=== PATIENT | male | born 1930 | race Caucasian/White ===

== ENCOUNTER 2016-08-10 11:17 | Inpatient (IN) | payer MEDICARE, BC, MEDICAID ==
[2016-08-10] VITALS (10 sets, daily range): BP systolic 96–150; BP diastolic 44–65; PULSE 73–89; TEMP 97.6–98.5
[~2016-08-10] VITALS: Ht 172.7 cm; Wt 74.2 kg
[~2016-08-10 11:17] MED LIST: ANTIVERT 12.512.5 MG PO; ASPIR-LOW81 MG PO; ASPIRIN E.C. 8181 MG PO; BYSTOLIC10 MG PO; BYSTOLIC5 MG PO; CALCIUM CARB500 MG PO; CLOPIDOGREL PO; DULCOLAX10 MG RC; FINASTERIDE5 MG PO; FISH OIL1 IU PO; FLOMAX; FLOMAX 0.40.4 MG/CAP PO; GLUCOSAMINE/CHONDROI PO; KLOR-CON 1010 MEQ PO; LASIX 20MG TABL20 MG PO; LISINOPRIL10 MG PO; MILK OF MA400 MG/51 PO; MIRALAX PA17 GM/Dose PO; MYLANTA 150 ML150 M1 PO; PROSCAR PO; PROTONIX 40MG T40 MG PO; TEGRETOL 2200 MG/TAB PO; TRIAMCINOLONE0.11 TP; TYLENOL 325MG325 MG PO; TYLENOL SU650 MG/SUP RC
[2016-08-10] MEDS ORDERED: ZANTAC 150MG T150 MG PO (11:22)
[2016-08-10] MEDS ORDERED: NORVASC 10MG10 MG PO (11:23)
[2016-08-10] MEDS ORDERED: NEXIUM 40MG40 MG PO (11:23)
[2016-08-10] MEDS ORDERED: COLACE 100100 MG/CAP PO (11:24)
[2016-08-10] MEDS ORDERED: SENNA8.6 MG PO (11:25)
[2016-08-10] MEDS ORDERED: CRANBERRY500 M3 PO (11:25)
[2016-08-10] MEDS ORDERED: COUMADIN 5MG5 MG/TAB PO (11:26)
[2016-08-10] MEDS ORDERED: GAVILYTE C WI PO (11:27)
[2016-08-10] MEDS ORDERED: COUMADIN 22.5 MG/TAB PO (11:42)
[2016-08-10] MEDS ORDERED: XALATAN EYE DROPS OU (11:46)
[2016-08-10] MEDS ORDERED: MULTI VITAMINS1 TAB PO (11:58)
[2016-08-10] MEDS ORDERED: CENA K20 MEQ/15 PO (11:59)
[2016-08-10] MEDS ORDERED: GAVISCON 80 MG-1 CT1 PO (12:00)
[2016-08-10] MEDS ORDERED: TYLEINFANT PO (12:02)
[2016-08-10] MEDS ORDERED: BACTROBAN NASA0.9 GM (12:02)
[2016-08-10] MEDS ORDERED: [UNRECOGNIZED DRUG - OTHER] (12:02)
[2016-08-10 13:46] LABS: BASO % 0.1 % (0.0-2.0); GRAN % 82.9 % (42.2-75.2); HEMATOCRIT 39.5 % (42.0-52.0); LYMPH % 11.6 % (20.0-51.0); MEAN CELL VOLUME 94 fl (80.0-100.0); MEAN CORPUSCULAR HEMOGLOBIN 31 pg (27.0-31.0); MEAN CORPUSCULAR HGB CONC 33 g/dl (33.0-37.0); MEAN PLATELET VOLUME 10.9 fl (7.4-10.4); MONO # 0.4 (0.1-0.6); MONO % 5.2 % (1.7-9.3); PLATELET COUNT 222 K/mm3 (130-400); RED BLOOD COUNT 4.19 M/mm3 (4.20-5.60); REDCELL DISTRIBUTION WIDTH-CV 15.1 % (11.5-14.5); WHITE BLOOD COUNT 8.4 K/mm3 (4.8-10.8)
[2016-08-10 13:53] LABS: INR 4.7 (0.8-3.0)
[2016-08-10 13:55] LABS: PROTHROMBIN TIME 55.6 SECONDS (9.7-12.8)
[2016-08-10 13:57] LABS: CALCIUM 9.2 mg/dL (8.4-10.2); CREATININE, serum 0.94 mg/dL (0.66-1.25)
[2016-08-10 14:02] LABS: POTASSIUM 2.7 mmol/L (3.4-5.0)
[2016-08-10 14:15] LABS: MAGNESIUM 2.7 mg/dL (1.6-2.3)
[2016-08-11] VITALS (7 sets, daily range): BP systolic 115–143; BP diastolic 45–68; PULSE 60–76; TEMP 98.2–98.9
[2016-08-11 06:23] LABS: BASO % 0.2 % (0.0-2.0); EOS % 0.2 % (0-4.0); GRAN # 9.2 (1.4-6.5); GRAN % 84.8 % (42.2-75.2); HEMATOCRIT 37.7 % (42.0-52.0); HEMOGLOBIN 12.2 g/dl (13.5-18.0); MEAN CELL VOLUME 95 fl (80.0-100.0); MEAN CORPUSCULAR HEMOGLOBIN 31 pg (27.0-31.0); MEAN CORPUSCULAR HGB CONC 32 g/dl (33.0-37.0); MEAN PLATELET VOLUME 10.5 fl (7.4-10.4); MONO # 0.6 (0.1-0.6); MONO % 5.3 % (1.7-9.3); PLATELET COUNT 204 K/mm3 (130-400); RED BLOOD COUNT 3.95 M/mm3 (4.20-5.60); REDCELL DISTRIBUTION WIDTH-CV 15.1 % (11.5-14.5); WHITE BLOOD COUNT 10.8 K/mm3 (4.8-10.8)
[2016-08-11 06:38] LABS: PROTHROMBIN TIME 11.3 SECONDS (9.7-12.8)
[2016-08-11 06:42] LABS: ALBUMIN 3.6 gm/dL (3.5-5.0); CALCIUM 8.5 mg/dL (8.4-10.2); CREATININE, serum 0.74 mg/dL (0.66-1.25); MAGNESIUM 2.4 mg/dL (1.6-2.3); PHOSPHOROUS 2.3 mg/dL (2.5-4.5); POTASSIUM 3.1 mmol/L (3.4-5.0)
[2016-08-11 07:36] LABS: PH 6 (5-8); SQUAMOUS EPITHELIAL None Seen /hpf; URINE APPEARANCE Cloudy; URINE BACTERIA None Seen /hpf; URINE BILIRUBIN Negative (NEGATIVE); URINE BLOOD Negative (NEGATIVE); URINE COLOR Yellow; URINE GLUCOSE Negative (NEGATIVE); URINE KETONE 2+ (NEGATIVE); URINE UROBILINOGEN Negative (NEGATIVE)
[2016-08-11 07:44] LABS: URINE WBC >50 /hpf
[2016-08-12 02:28] VITALS: BP 122/43; PULSE 65; TEMP 97
[2016-08-12 05:48] VITALS: BP 128/70; PULSE 78; TEMP 98.5
[2016-08-12 10:35] VITALS: BP 132/53; PULSE 70; TEMP 97.6
[2016-08-12 14:10] VITALS: BP 132/54; PULSE 73; TEMP 97.8
[2016-08-12 17:08] VITALS: BP 140/58; PULSE 67; TEMP 97.9
[2016-08-12 21:44] VITALS: BP 137/59; PULSE 64; TEMP 98
[2016-08-13 02:00] VITALS: BP 139/61; PULSE 60; TEMP 98
[2016-08-13 05:23] VITALS: BP 140/59; PULSE 57; TEMP 97.9
[2016-08-13 10:09] VITALS: BP 123/54; PULSE 74; TEMP 97.8
[2016-08-13 14:41] VITALS: BP 112/47; PULSE 66; TEMP 98.3
[2016-08-13 17:54] VITALS: BP 150/64; PULSE 69; TEMP 97.5
[2016-08-13 22:00] VITALS: BP 142/65; PULSE 67; TEMP 98.1
[2016-08-14 02:00] VITALS: BP 142/62; PULSE 60; TEMP 98
[2016-08-14 06:00] VITALS: BP 146/71; PULSE 68; TEMP 98.2
[2016-08-14 08:04] LABS: BASO % 0.5 % (0.0-2.0); EOS # 0.2 (0.0-0.7); EOS % 3.6 % (0-4.0); GRAN # 3.7 (1.4-6.5); GRAN % 60.4 % (42.2-75.2); HEMATOCRIT 38.5 % (42.0-52.0); HEMOGLOBIN 12.7 g/dl (13.5-18.0); LYMPH # 1.6 (1.2-3.4); LYMPH % 26.8 % (20.0-51.0); MEAN CELL VOLUME 94 fl (80.0-100.0); MEAN CORPUSCULAR HEMOGLOBIN 31 pg (27.0-31.0); MEAN CORPUSCULAR HGB CONC 33 g/dl (33.0-37.0); MEAN PLATELET VOLUME 11.1 fl (7.4-10.4); MONO # 0.5 (0.1-0.6); PLATELET COUNT 226 K/mm3 (130-400); REDCELL DISTRIBUTION WIDTH-CV 15.2 % (11.5-14.5); WHITE BLOOD COUNT 6.1 K/mm3 (4.8-10.8)
[2016-08-14] MEDS ORDERED: LOVENOX 3030 MG/0.3 SQ (08:15)
[2016-08-14 08:18] LABS: ADJUSTED CALCIUM 9.1 mg/dL (8.4-10.2); ALBUMIN 3.4 gm/dL (3.5-5.0); BILIRUBIN,TOTAL 0.8 mg/dL (0.0-1.0); CALCIUM 8.6 mg/dL (8.4-10.2); CREATININE, serum 0.66 mg/dL (0.66-1.25); POTASSIUM 3.3 mmol/L (3.4-5.0); TOTAL PROTEIN 6.6 gm/dL (6.4-8.2)
[2016-08-14 09:21] VITALS: BP 113/44; PULSE 73; TEMP 98.3
[2016-08-14] MEDS ORDERED: K-TAB10 PO (09:56)
[2016-08-14 12:28] VITALS: BP 113/44; PULSE 73; TEMP 98.3
== END 2016-08-14 13:45 | DRG 388 ==
LOC: SURG 11:17
PROVIDERS: Family Medicine; Internal Medicine; Surgery
PROC: 0D7N8ZZ Dilation of Sigmoid Colon, Via Natural or Artificial Opening Endoscopic (ICD-10-PCS; principal; 2016-08-10 18:00)
DX: K56.2 Volvulus (principal); J96.21 Acute and chronic respiratory failure with hypoxia; J98.11 Atelectasis; E87.6 Hypokalemia; I10 Essential (primary) hypertension; G14 Postpolio syndrome; Z86.711 Personal history of pulmonary embolism; Z79.01 Long term (current) use of anticoagulants; Z86.73 Personal history of transient ischemic attack (TIA), and cerebral infarction without residual deficits; I87.2 Venous insufficiency (chronic) (peripheral)
CPT/HCPCS: 99223-AI; 99233-AI; 99239; C9113; C9132; J1650; J1940; J2250; J2704; J3010; J3430; J3480; J7030; Q9967

== ENCOUNTER 2016-08-16 10:24 | Inpatient (IN) | payer MEDICARE, BC, MEDICAID ==
[~2016-08-16] VITALS: Ht 177.8 cm; Wt 74.2 kg
[~2016-08-16 10:24] MED LIST changes: +BACTROBAN NASA0.9 GM; +CENA K20 MEQ/15 PO; +COLACE 100100 MG/CAP PO; +COUMADIN 22.5 MG/TAB PO; +COUMADIN 5MG5 MG/TAB PO; +CRANBERRY500 M3 PO; +GAVILYTE C WI PO; +GAVISCON 80 MG-1 CT1 PO; +K-TAB10 PO; +LOVENOX 3030 MG/0.3 SQ; +MULTI VITAMINS1 TAB PO; +NEXIUM 40MG40 MG PO; +NORVASC 10MG10 MG PO; +SENNA8.6 MG PO; +TYLEINFANT PO; +XALATAN EYE DROPS OU; +ZANTAC 150MG T150 MG PO; +[UNRECOGNIZED DRUG - OTHER]
[2016-08-17] VITALS (609 sets, daily range): BP systolic 98–130; BP diastolic 41–58; PULSE 60–90; TEMP 98–98.6; O2SAT 94–100
[2016-08-17 08:48] LABS: BASO % 0.4 % (0.0-2.0); EOS # 0.1 (0.0-0.7); EOS % 2.5 % (0-4.0); GRAN # 3.6 (1.4-6.5); GRAN % 63.7 % (42.2-75.2); LYMPH # 1.4 (1.2-3.4); LYMPH % 25.3 % (20.0-51.0); MEAN CELL VOLUME 95 fl (80.0-100.0); MEAN CORPUSCULAR HGB CONC 33 g/dl (33.0-37.0); MEAN PLATELET VOLUME 10.5 fl (7.4-10.4); MONO # 0.4 (0.1-0.6); MONO % 7.7 % (1.7-9.3); PLATELET COUNT 227 K/mm3 (130-400); RED BLOOD COUNT 3.62 M/mm3 (4.20-5.60); REDCELL DISTRIBUTION WIDTH-CV 15.3 % (11.5-14.5); WHITE BLOOD COUNT 5.7 K/mm3 (4.8-10.8)
[2016-08-17 08:50] LABS: HEMATOCRIT 34.3 % (42.0-52.0); HEMOGLOBIN 11.4 g/dl (13.5-18.0); MEAN CORPUSCULAR HEMOGLOBIN 31 pg (27.0-31.0)
[2016-08-17 08:54] LABS: INR 1.3 (0.8-3.0); PROTHROMBIN TIME 14.1 SECONDS (9.7-12.8)
[2016-08-17 08:58] LABS: ADJUSTED CALCIUM 9.1 mg/dL (8.4-10.2); ALBUMIN 3.3 gm/dL (3.5-5.0); BILIRUBIN,TOTAL 0.6 mg/dL (0.0-1.0); CALCIUM 8.5 mg/dL (8.4-10.2); CREATININE, serum 0.64 mg/dL (0.66-1.25); POTASSIUM 3.4 mmol/L (3.4-5.0); TOTAL PROTEIN 6.5 gm/dL (6.4-8.2)
[2016-08-17] MEDS ORDERED: FLOMAX 0.40.4 MG/CAP PO (09:28)
[2016-08-17] MEDS ORDERED: GAVISCON 95 MG360 ML PO (09:29)
[2016-08-17] MEDS ORDERED: LASIX 20MG TABL20 MG PO (09:30)
[2016-08-17] MEDS ORDERED: MULTI VITAMINS1 TAB PO (09:31)
[2016-08-17] MEDS ORDERED: NEXIUM 40MG40 MG PO (09:32)
[2016-08-17] MEDS ORDERED: ANTIVERT 12.512.5 MG PO (09:33)
[2016-08-17] MEDS ORDERED: TUMS500 MG PO (09:33)
[2016-08-17] MEDS ORDERED: TYLEINFANT PO (09:35)
[2016-08-17] MEDS ORDERED: LOVENOX 3030 MG/0.3 SQ (09:36)
[2016-08-17] MEDS ORDERED: COLACE 100100 MG/CAP PO (09:36)
[2016-08-17] MEDS ORDERED: SENOKOT S 50 MG1 TAB PO (09:38)
[2016-08-17] MEDS ORDERED: MIRALAX PA17 GM/Dose PO (09:38)
[2016-08-17] MEDS ORDERED: XALATAN EYE DROPS OU (09:39)
[2016-08-17] MEDS ORDERED: ZANTAC 150MG T150 MG PO (09:41)
[2016-08-17] MEDS ORDERED: K-TAB10 PO (09:41)
[2016-08-18] VITALS (798 sets, daily range): BP systolic 109–138; BP diastolic 52–75; PULSE 54–67; TEMP 97.5–98.8; O2SAT 82–100
[2016-08-18 05:59] LABS: BASO % 0.2 % (0.0-2.0); GRAN % 81.6 % (42.2-75.2); LYMPH # 1.1 (1.2-3.4); LYMPH % 10.9 % (20.0-51.0); MEAN CELL VOLUME 98 fl (80.0-100.0); MEAN CORPUSCULAR HGB CONC 32 g/dl (33.0-37.0); MEAN PLATELET VOLUME 10.9 fl (7.4-10.4); MONO # 0.7 (0.1-0.6); MONO % 6.7 % (1.7-9.3); PLATELET COUNT 205 K/mm3 (130-400); RED BLOOD COUNT 3.14 M/mm3 (4.20-5.60); REDCELL DISTRIBUTION WIDTH-CV 15.4 % (11.5-14.5); WHITE BLOOD COUNT 9.7 K/mm3 (4.8-10.8)
[2016-08-18 06:04] LABS: ADJUSTED CALCIUM 9.2 mg/dL (8.4-10.2); ALBUMIN 2.6 gm/dL (3.5-5.0); BILIRUBIN,TOTAL 0.4 mg/dL (0.0-1.0); CALCIUM 8.1 mg/dL (8.4-10.2); CREATININE, serum 0.66 mg/dL (0.66-1.25); POTASSIUM 4.6 mmol/L (3.4-5.0); TOTAL PROTEIN 5.3 gm/dL (6.4-8.2)
[2016-08-18 06:06] LABS: HEMATOCRIT 30.6 % (42.0-52.0); HEMOGLOBIN 9.8 g/dl (13.5-18.0); MEAN CORPUSCULAR HEMOGLOBIN 31 pg (27.0-31.0)
[2016-08-18 06:07] LABS: INR 1.3 (0.8-3.0)
[2016-08-19 01:59] VITALS: BP 133/51; PULSE 61; TEMP 98
[2016-08-19 05:37] VITALS: BP 130/55; PULSE 71; TEMP 98.7
[2016-08-19 10:33] VITALS: BP 152/70; PULSE 76; TEMP 98.7
[2016-08-19 14:55] VITALS: BP 169/64; PULSE 71; TEMP 98.6
[2016-08-19 18:11] VITALS: BP 132/65; PULSE 91; TEMP 98.9
[2016-08-19 22:00] VITALS: BP 141/51; PULSE 91; TEMP 97.8
[2016-08-20 05:54] VITALS: BP 136/56; PULSE 74; TEMP 98
[2016-08-20 09:42] VITALS: BP 134/47; PULSE 69; TEMP 97.9
[2016-08-20 14:21] VITALS: BP 157/69; PULSE 79; TEMP 98.2
[2016-08-20 17:53] VITALS: BP 141/67; PULSE 95; TEMP 98.7
[2016-08-20 22:00] VITALS: BP 93/54; PULSE 103; TEMP 98
[2016-08-20 22:43] VITALS: BP 111/51; PULSE 85
[2016-08-21 02:38] VITALS: BP 113/59; PULSE 73; TEMP 98.1
[2016-08-21 07:16] LABS: INR 1.4 (0.8-3.0); PROTHROMBIN TIME 15.3 SECONDS (9.7-12.8)
[2016-08-21 07:36] LABS: CALCIUM 8.4 mg/dL (8.4-10.2); CREATININE, serum 0.62 mg/dL (0.66-1.25); MAGNESIUM 2.1 mg/dL (1.6-2.3); POTASSIUM 3.1 mmol/L (3.4-5.0)
[2016-08-21 10:39] VITALS: BP 130/65; PULSE 82; TEMP 97.6
[2016-08-21 14:21] VITALS: BP 120/65; PULSE 88; TEMP 98.2
[2016-08-21 17:40] VITALS: BP 129/58; PULSE 79; TEMP 98
[2016-08-21 22:00] VITALS: BP 109/57; PULSE 85; TEMP 98.1
[2016-08-22 06:12] VITALS: BP 143/61; PULSE 70; TEMP 98.2
[2016-08-22 06:42] LABS: BASO % 0.4 % (0.0-2.0); EOS # 0.2 (0.0-0.7); EOS % 2.3 % (0-4.0); GRAN # 4.5 (1.4-6.5); GRAN % 64.6 % (42.2-75.2); HEMATOCRIT 31.3 % (42.0-52.0); HEMOGLOBIN 10.2 g/dl (13.5-18.0); LYMPH # 1.6 (1.2-3.4); LYMPH % 23.5 % (20.0-51.0); MEAN CELL VOLUME 96 fl (80.0-100.0); MEAN CORPUSCULAR HEMOGLOBIN 31 pg (27.0-31.0); MEAN CORPUSCULAR HGB CONC 33 g/dl (33.0-37.0); MEAN PLATELET VOLUME 10.6 fl (7.4-10.4); MONO # 0.6 (0.1-0.6); MONO % 8.8 % (1.7-9.3); PLATELET COUNT 250 K/mm3 (130-400); RED BLOOD COUNT 3.27 M/mm3 (4.20-5.60); REDCELL DISTRIBUTION WIDTH-CV 15.3 % (11.5-14.5)
[2016-08-22 06:49] LABS: INR 1.4 (0.8-3.0); PROTHROMBIN TIME 15.7 SECONDS (9.7-12.8)
[2016-08-22 06:57] LABS: CALCIUM 8.5 mg/dL (8.4-10.2); CREATININE, serum 0.6 mg/dL (0.66-1.25); POTASSIUM 3.2 mmol/L (3.4-5.0)
[2016-08-22 09:32] VITALS: BP 136/53; PULSE 80; TEMP 97.5
[2016-08-22] MEDS ORDERED: FERROUS SU325 MG/TAB PO (11:18)
[2016-08-22] MEDS ORDERED: COUMADIN 5MG5 MG/TAB PO (11:19)
[2016-08-22] MEDS ORDERED: LOVENOX 4040 MG/0.4 SQ (11:19)
[2016-08-22] MEDS ORDERED: NORCO 325 MG-51 TAB PO (11:20)
[2016-08-22 11:41] VITALS: BP 136/53; PULSE 80; TEMP 97.5
== END 2016-08-22 13:15 | disposition swing bed (61) | DRG 330 ==
LOC: INPTSU 08-17 05:44 → SURG 08-17 07:30 → ICU 08-17 13:00 → SURG 08-18 16:45
PROVIDERS: Internal Medicine; Nurse Anesthetist, Certified Registered; Nurse Practitioner Family; Surgery
PROC: 0DTN0ZZ Resection of Sigmoid Colon, Open Approach (ICD-10-PCS; principal; 2016-08-17 07:30)
PROC: 0DTJ0ZZ Resection of Appendix, Open Approach (ICD-10-PCS; 2016-08-17 07:30)
PROC: 0WJP4ZZ Inspection of Gastrointestinal Tract, Percutaneous Endoscopic Approach (ICD-10-PCS; 2016-08-17 07:30)
DX: K56.2 Volvulus (principal); E44.0 Moderate protein-calorie malnutrition; K38.8 Other specified diseases of appendix; G14 Postpolio syndrome; I10 Essential (primary) hypertension; Z86.711 Personal history of pulmonary embolism; Z79.01 Long term (current) use of anticoagulants; I87.2 Venous insufficiency (chronic) (peripheral); E87.6 Hypokalemia; D50.0 Iron deficiency anemia secondary to blood loss (chronic)
CPT/HCPCS: 99223; 99231-AI; 99232-AI; A4315; A9284; C1751; J0694; J1100; J1170; J1644; J1650; J1885; J2250; J2405; J2710; J7040; J7120

== ENCOUNTER → 2016-09-06 | Outpatient (REF) ==
[~2016-09-06] MED LIST changes: +FERROUS SU325 MG/TAB PO; +GAVISCON 95 MG360 ML PO; +LOVENOX 4040 MG/0.4 SQ; +NORCO 325 MG-51 TAB PO; +SENOKOT S 50 MG1 TAB PO; +TUMS500 MG PO
== END ==
LOC: ZAIV 09-05 06:40
DX: Z02.89 Encounter for other administrative examinations (principal)

== ENCOUNTER → 2016-09-29 | Outpatient (CLI) | payer MEDICARE, BC, MEDICAID | LOC: COL.RAD 10:54 | DX: M48.56XA Collapsed vertebra, not elsewhere classified, lumbar region, initial encounter for fracture (principal); M85.88 Other specified disorders of bone density and structure, other site; M47.816 Spondylosis without myelopathy or radiculopathy, lumbar region; I70.0 Atherosclerosis of aorta ==

== ENCOUNTER → 2016-11-09 | Outpatient (REF) | LOC: ZLAB.WCH 14:48 | DX: Z01.89 Encounter for other specified special examinations (principal) | CPT/HCPCS: G0103 ==

== ENCOUNTER → 2016-11-16 | Outpatient (CLI) | payer MEDICARE, BC, MEDICAID | LOC: COL.RAD 09:04 | DX: S32.030A Wedge compression fracture of third lumbar vertebra, initial encounter for closed fracture (principal); S32.050A Wedge compression fracture of fifth lumbar vertebra, initial encounter for closed fracture; M25.559 Pain in unspecified hip; M79.606 Pain in leg, unspecified | CPT/HCPCS: A9503 ==

== ENCOUNTER 2017-11-29 14:10 | Emergency (ER) | payer MEDICARE, BC, MEDICAID ==
[~2017-11-29] VITALS: Ht 175.3 cm; Wt 3.2 kg
[2017-11-29 14:33] VITALS: TEMP 97.9
[2017-11-29 15:28] LABS: BASO % 0.3 % (0.0-2.0); EOS % 0.1 % (0-4.0); GRAN # 6.5 (1.4-6.5); GRAN % 82.7 % (42.2-75.2); HEMATOCRIT 39.7 % (42.0-52.0); HEMOGLOBIN 12.8 g/dl (13.5-18.0); LYMPH # 0.9 (1.2-3.4); LYMPH % 10.9 % (20.0-51.0); MEAN CELL VOLUME 99 fl (80.0-100.0); MEAN CORPUSCULAR HEMOGLOBIN 32 pg (27.0-31.0); MEAN CORPUSCULAR HGB CONC 32 g/dl (33.0-37.0); MEAN PLATELET VOLUME 10.4 fl (7.4-10.4); MONO # 0.4 (0.1-0.6); MONO % 5.4 % (1.7-9.3); PLATELET COUNT 223 K/mm3 (130-400); RED BLOOD COUNT 4.03 M/mm3 (4.20-5.60); REDCELL DISTRIBUTION WIDTH-CV 14.7 % (11.5-14.5)
[2017-11-29 15:33] LABS: COLLECTION METHOD CLEAN CATCH
[2017-11-29 15:44] LABS: ALBUMIN 3.7 gm/dL (3.5-5.0); BILIRUBIN,TOTAL 0.7 mg/dL (0.0-1.0); C-REACTIVE PROTEIN 2.2 mg/dL (0.0-0.9); CALCIUM 9.3 mg/dL (8.4-10.2); CREATININE, serum 0.75 mg/dL (0.66-1.25); POTASSIUM 3.1 mmol/L (3.4-5.0); TOTAL PROTEIN 6.6 gm/dL (6.4-8.2)
[2017-11-29 15:50] LABS: AMORPHOUS CRYSTAL Present /uL; MUCOUS Present /lpf; PH 7 (5-8); SQUAMOUS EPITHELIAL None Seen /hpf; URINE APPEARANCE Cloudy; URINE BACTERIA Rare /hpf; URINE BILIRUBIN Negative (NEGATIVE); URINE BLOOD 1+ (NEGATIVE); URINE COLOR Yellow; URINE GLUCOSE Negative (NEGATIVE); URINE KETONE Negative (NEGATIVE); URINE LEUKOCYTE ESTERASE Trace (NEGATIVE); URINE NITRATE Negative (NEGATIVE); URINE PROTEIN(semi-quant) Negative (NEGATIVE); URINE UROBILINOGEN Negative (NEGATIVE)
[2017-11-29 15:58] LABS: PROTHROMBIN TIME 22.3 SECONDS (9.7-12.8)
[2017-11-29] MEDS ORDERED: OMNICEF 300MG300 MG PO (16:18)
[2017-11-29 17:11] VITALS: BP 179/87; PULSE 65
== END 2017-11-29 17:13 | disposition home or self-care (01) ==
LOC: COL.ER 14:10
PROVIDERS: Family Medicine
DX: N39.0 Urinary tract infection, site not specified (principal); I10 Essential (primary) hypertension; I48.91 Unspecified atrial fibrillation; E11.9 Type 2 diabetes mellitus without complications; Z79.01 Long term (current) use of anticoagulants
CPT/HCPCS: A4216; J0696; J7030

== ENCOUNTER → 2017-12-21 | Outpatient (REF) ==
[~2017-12-21] MED LIST changes: +OMNICEF 300MG300 MG PO
== END ==
LOC: ZLAB.WCH 18:11
DX: Z01.89 Encounter for other specified special examinations (principal)